=== PATIENT | female | born 1950 | race Hispanic/Latino ===

== ENCOUNTER 2016-09-29 09:40 | Outpatient (CLI) | payer MEDICARE ==
[2016-09-29 11:26] LABS: Blood Urea Nitrogen 20 mg/dL (7-17)
[2016-09-29] MEDS ORDERED: NACL ONE (11:37)
--- NOTE | 2016-09-29 12:14 | Cat Scan Report ---
CT NECK WITH AND WITHOUT CONTRAST History: Neck abscess, pain, swelling. Technique: Helical CT in 1.25 mm intervals with sagittal and coronal reformatted images. IV contrast was administered. Findings: No comparison. Early abscess formation is identified in the right side of the neck measuring 3.2 x 2.6 x 3.6 cm. This collection is located just inferior to the right parotid gland, anterior to the sternocleidomastoid muscle and lateral to the right submandibular gland and carotid vessels. There is no extension into the carotid sheath. There a few scattered reactive lymph nodes in the right jugular chain but no bulky adenopathy or necrotic lymph nodes. The remaining soft tissue structures of the neck are within normal limits. The upper airway is widely patent. Normal thyroid gland. The bony structures are intact. Moderate multilevel cervical spondylosis is noted. No fracture or bone lesion. The imaged brain is within normal limits. The lung apices are clear. Impression: Right neck abscess as described.
== END 2016-09-29 09:41 | disposition home or self-care (01) ==
LOC: CT 09:40
PROVIDERS: ATTEND Otolaryngology
DX: L02.11 Cutaneous abscess of neck (principal); M47.892 Other spondylosis, cervical region
CPT/HCPCS: 36415; 70492; 82565; 84520; Q9967